=== PATIENT | male | born 1990 | race Caucasian/White ===

== ENCOUNTER 2022-08-03 21:19 | Emergency (ER) | payer OTHER ==
[~2022-08-03] VITALS: Ht 167.6 cm; Wt 104.3 kg
[2022-08-03 21:19] VITALS: BP 125/64
--- NOTE | 2022-08-03 21:19 | NUR ---
PT IN [place] WITH [facility]
[2022-08-03 22:54] VITALS: BP 125/64
--- NOTE | 2022-08-03 22:54 | NUR ---
Patient discharged. Written and verbal after care instructions given and explained. Patient verbalized understanding. Patient with Police in custody. All questions addressed prior to discharge. Advised to follow up with [facility]D.
== END 2022-08-03 22:54 ==
LOC: MED 21:19
DX: V49.88XA Car occupant (driver) (passenger) injured in other specified transport accidents, initial encounter; Y93.89 Activity, other specified; Y92.89 Other specified places as the place of occurrence of the external cause; Y99.8 Other external cause status
CPT/HCPCS: 99283